=== PATIENT | male | born 1970 | race Caucasian/White ===

== ENCOUNTER 2017-11-26 09:28 | Emergency (ER) | payer BC ==
[2017-11-26] MEDS ORDERED: Acetaminophen 325 MG TAB ONE (10:05)
[2017-11-26] MEDS ORDERED: Ibuprofen 800 MG TAB ONE (13:22)
--- NOTE | 2017-11-26 14:26 | MRI ---
MRI RIGHT SHOULDER WITHOUT CONTRAST: Date: 11/26/17 HISTORY: Shoulder pain. Injury. COMPARISON: None. FINDINGS: Biceps Tendon: The intraarticular and extraarticular biceps tendon is unremarkable. Labrum: Labrum is intact. Rotator Cuff: There is low grade footplate tear, tearing at the posterior fibers of the supraspinatus and anterior fibers of the infraspinatus tendons. At the supraspinatus tendon, there is 20-30% footplate tear, whi ch appears to be hidden, measurin 6.0 mm in AP dimension with articular or bursal surface extension. At the infraspinatus tendon, there is 25% articular surface partial tear measuring 1.0 cm in AP dimen roselia. Bones: Type I acromion, No marrow edema. No fracture. Muscles: There is Grade II injury of the anterior clavicular head of the deltoid muscle. IMPRESSION: 1. Grade II partial tear of the anterior clavicular head at the deltoid muscle. 2. Hidden footplate tear of the anterior fibers of the supraspinatus tendon measuring 6.0 mm in AP d imension, approximately 50% of the footplate thickness. 3. 1.0 cm footplate undersurface partial tear of the infraspinatus tendon anterior fibers. No retrac florencio tendon fibers. POS: [facility]
[2017-11-26] MEDS ORDERED: Ketorolac Tromethamine 30 MG/ML VIAL ONE (15:36)
--- NOTE | 2017-11-29 13:51 | CON ---
DATE OF CONSULTATION: 11/26/2017 REQUESTING PHYSICIAN: Dr. Shannon Hensley CONSULTING PHYSICIAN: Dr. Alejandro Barry. REASON FOR CONSULTATION: Intense right shoulder pain. BRIEF CLINICAL HISTORY: Kevin is a 47-year-old healthy active male who was transferred from [facility] Emergency Room to [facility] Emergency Room with intense right shoulder ritika n with concerns over possible pyogenic arthritis. Prior to this the patient had onset of shoulder p ain on the after he had done quite a bit of moving of boxes and was very active. He had an insi dious onset which over the next couple of hours. He was seen in the emergency room, I believe, by Dr Brenda Bhatt in [place] as the first visit. He was seen prior to this in [place] and apparently had up to 28 injections of dextrose in the right shoulder girdle area. His pain, failed to improve. Therefore, he presented to [facility] ER on 11/24/2017. Dr. Bhatt treated the patient conser vatively with Toradol orally which helped a little bit. Two days later the patient's pain was still unresolved. He went back to the Emergency Room in [place] was seen by Dr. Muñoz. The patient also had a temperature at this time and I believe Dr. Muñoz was concerned about a septic arthritis. During the emergency room visit that day the patient's temperature went to 102.7. Dr. Muñoz attempted an an terior approach arthrocentesis of the right shoulder, but was unable to get any fluid. Therefore, he decided to transfer the patient to [facility] under the care of Dr. Wilman calvert ith concerns of right shoulder septic arthritis. Dr. Hensley evaluated the patient and also noted a t emperature of 101.9 while he was in the emergency room. Therefore, she consulted our service for ort hopedic evaluation of the right shoulder with accompanying temperature. PHYSICAL EXAMINATION: The patient is alert and oriented. He has a documented temperature 101.9 oral ly. He is appropriate with examiner and appears nonfocal. He is able to sit and stand comfortably, but he admits to intense pain in and along posterior trapezial region which he indicates by pointing in the anterior trapezial region about midway between the cervical spine and the AC joint. Range of motion of the shoulder is a little bit limited, but his pain is significantly magnified when he tries to elevate and raise the shoulder. Passively, I can move him with internal and external rotation wi thin normal limits, but it does not appear to aggravate his pain with small movements as I would expe ct in a septic joint. He has an area on the anterior aspect of the shoulder consistent with arthroce ntesis approach, it does not appear erythematous. There is no fluid or bleeding noted. He is neurov ascularly intact in the right upper extremity, but when viewed from behind he does have a little bit of a droop of the right shoulder girdle relative to the left and he admits to pain running up into th e neck as well. Palpation is mildly provocative for pain, but range of motion is also provocative fo r pain. Plain radiographs have been obtained by the emergency room physician which essentially are b enign. The patient has weakness with external rotation with elbows at the waist. IMAGING STUDIES: Noncontrast MRI of the right shoulder was obtained while the patient was at [facility] which demonstrated about a 20-30% tear of the supraspinatus tendon without retraction. Biceps appears to be located in the groove. No significant effusion is in the joint. There is no suggestion of pyogenic arthritis. Plain radiographs are also within normal limits with n o suggestion of effusion. IMPRESSION: 1. The patient does have a small rotator cuff, but it does not explain the intensity of discomfort r eported and the number of bounce backs to the emergency room. 2. 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 PLAN: I highly recommend pain control. I do not think that the rotator cuff is the primary pain gen erator for this patient and responsible for his multiple emergency room visits unless it is understat ed on MRI. He does have some weakness on examination suggestive of a supraspinatus tear and it is mi ldly provocative when examined in the sitting position. I highly recommend the patient be seen by Neurosurgery to evaluate the intensity and almost neuritis type of pain in the spinal accessory nerve. I am not aware of any impingement syndromes that are cap able of occurring that high in the cervical spine. As far as a rotator cuff tear is concerned, it do es appear to be somewhat symptomatic; however, without a large effusion noted on MR, this is not the level of pain that we normally see with an acute rotator cuff tear. Therefore, we will follow up wit h the patient in clinic with either Dr. Noble or maybe Dr. Fowler. In the meantime, I believe the emergency room will arrange for an outpatient neurosurgical evaluation.
== END 2017-11-26 16:12 | disposition home or self-care (01) ==
LOC: ERS 09:28
DX: M25.511 Pain in right shoulder (principal); R50.9 Fever, unspecified; I10 Essential (primary) hypertension
CPT/HCPCS: 96361; 96374; 96375; 96376; J1885; J2270

== ENCOUNTER 2017-11-26 22:04 | Emergency (ER) | payer BC ==
[2017-11-27] MEDS ORDERED: Ketorolac Tromethamine 60 MG/2 ML VIAL ONE (00:28)
[2017-11-27] MEDS ORDERED: Acetaminophen 500 MG TAB ONE (00:28)
[2017-11-27] MEDS ORDERED: Morphine 10 MG/ML VIAL ONE (00:28)
== END 2017-11-27 02:02 | disposition home or self-care (01) ==
LOC: ERS 22:04
DX: S46.011A Strain of muscle(s) and tendon(s) of the rotator cuff of right shoulder, initial encounter (principal); I10 Essential (primary) hypertension
CPT/HCPCS: 96372; J1885; J2270